=== PATIENT | female | born 1980 | race Caucasian/White ===

== ENCOUNTER 2020-12-17 18:39 | Emergency (ER) | payer OTHER ==
[~2020-12-17] VITALS: Ht 160 cm; Wt 95.3 kg
[2020-12-17] MEDS ORDERED: LISINOPRIL10 MG PO (19:01)
[2020-12-17] MEDS ORDERED: VISTARIL50 MG PO (19:01)
[2020-12-17 19:15] LABS: URINE BILIRUBIN NEGATIVE (Negative); URINE BLOOD 1+ (Negative); URINE COLOR YELLOW; URINE GLUCOSE-RANDOM NEGATIVE (Negative); URINE KETONES NEGATIVE (Negative); URINE LEUKOCYTES-REFLEX NEGATIVE (Negative); URINE NITRITE-REFLEX NEGATIVE (Negative); URINE PROTEIN NEGATIVE (Negative); URINE SPECIFIC GRAVITY <= 1.005 (1.005-1.030); URINE UROBILINOGEN 0.2 E.U./dl (0.2-1.0)
[2020-12-17 19:21] LABS: URINE CLARITY HAZY
[2020-12-17 19:22] LABS: BACTERIA-REFLEX None Seen /HPF (None Seen); CASTS None Seen /LPF (None Seen); CRYSTALS None Seen /LPF (None Seen); SQUAMOUS 0-3 Few /LPF (0-3); URINE RBC 0-2 Rare /HPF (0-2); URINE WBC-REFLEX None Seen /HPF (0-5)
[2020-12-17 19:24] LABS: AMP/METHAMP Negative (Negative); BARBITURATES Negative (Negative); BENZODIAZEPINES POSITIVE (Negative); COCAINE Negative (Negative); METHADONE Negative (Negative); OPIATES Negative (Negative); PCP Negative (Negative); THC Negative (Negative)
[2020-12-17 19:29] LABS: ABSOLUTE BASOPHILS 0.1 thou/uL (0.0-0.2); ABSOLUTE EOSINOPHILS 0.2 thou/uL (0.0-0.7); ABSOLUTE LYMPHOCYTES 4.8 thou/uL (0.8-5.3); ABSOLUTE MONOCYTES 0.7 thou/uL (0.0-1.2); ABSOLUTE NEUTROPHILS 6.6 thou/uL (1.6-8.1); BASOPHILS 0.7 %; EOSINOPHILS 1.6 %; HEMATOCRIT 41.2 % (37.0-47.0); HEMOGLOBIN 13.9 gm/dL (12.0-15.0); LYMPHOCYTES 38.8 %; MCH 27.8 pg (26.0-34.0); MCHC 33.7 g/dL (28.0-37.0); MCV 82.5 fL (80.0-100.0); MONOCYTES 5.7 %; MPV 7.3 fl. (7.2-11.1); NUCLEATED RBCS 0 /100WBC; PLATELET COUNT* 338 thou/uL (150-400); POLYS 53.2 %; RBC 4.99 mil/uL (4.20-5.00); RDW-CV 15.3 % (10.5-14.5); WBC 12.3 thou/uL (4.0-11.0)
[2020-12-17 19:35] LABS: CALCIUM 8.5 mg/dL (8.5-10.1); POTASSIUM 3.2 mmol/L (3.5-5.1)
[2020-12-17 19:39] LABS: ALBUMIN 3.8 g/dL (3.4-5.0); TOTAL BILIRUBIN 0.5 mg/dL (<0.1-1.0); TOTAL PROTEIN 7.2 g/dL (6.4-8.2)
[2020-12-17 19:45] LABS: ACETAMINOPHEN < 2 ug/mL (10-30); ALCOHOL 328 mg/dL (<10); SALICYLATE < 2.8 mg/dL (2.8-20.0)
[2020-12-17] MEDS ORDERED: LEXAPRO 10 MG T10 M2 PO (20:44)
[2020-12-17] MEDS ORDERED: NEURONTIN300 MG PO (20:44)
[2020-12-17] MEDS ORDERED: CHILDREN'S ZYRT10 M1 PO (20:44)
[2020-12-17] MEDS ORDERED: SEROQUEL 50 MG50 MG PO (20:44)
[2020-12-17] MEDS ORDERED: BENTYL 10 MG CA10 M1 PO (20:45)
[2020-12-17] MEDS ORDERED: ANTABUSE250 M1 PO (20:45)
[2020-12-17] MEDS ORDERED: SRONYX1 EACH PO (20:45)
[2020-12-17] MEDS ORDERED: AIRDUO DIGIHAL1 EAC1 INH (20:47)
[2020-12-18 01:32] VITALS: BP 155/79
== END 2020-12-18 01:32 | disposition home or self-care (01) ==
LOC: M.ERS 18:39
PROVIDERS: Family Medicine
DX: F10.920 Alcohol use, unspecified with intoxication, uncomplicated (principal); Z20.822 Contact with and (suspected) exposure to COVID-19; R45.851 Suicidal ideations; I10 Essential (primary) hypertension; F32.9 Major depressive disorder, single episode, unspecified; F41.9 Anxiety disorder, unspecified; Z88.1 Allergy status to other antibiotic agents; Z88.2 Allergy status to sulfonamides; Z79.899 Other long term (current) drug therapy; Y90.8 Blood alcohol level of 240 mg/100 ml or more